=== PATIENT | male | born 1960 | race Caucasian/White ===

== ENCOUNTER 2019-12-04 05:52 | Inpatient (IN) ==
--- NOTE | 2019-12-02 11:01 | XRay Report ---
CLINICAL INFORMATION: Preop COMPARISON: 06/17/2019 TECHNIQUE: PA and Lateral views FINDINGS: The heart size, mediastinum and pulmonary vessels are unremarkable. The lungs are clear. There are no effusions. The bones and soft tissues are within normal limits. IMPRESSION: Normal chest. Interpreted and Authenticated by: Shilo Herrera 12/02/19
[2019-12-02 13:59] LABS: Basophils # (Auto) 0.04 K/mcL (0.00-0.30); Basophils % (Auto) 0.6 % (0.0-2.0); Eosinophils # (Auto) 0.08 K/mcL (0.00-0.70); Eosinophils % (Auto) 1.2 % (0.0-7.0); Granulocytes % (Auto) 61.4 % (38.0-78.0); Hematocrit 44.9 % (40.1-51.0); Hemoglobin 15.6 g/dL (13.7-17.5); Lymphocytes # (Auto) 1.96 K/mcL (1.50-4.80); Lymphocytes % (Auto) 30.3 % (15.5-49.0); Mean Cell Volume 89.3 fL (80.0-100.0); Mean Corpuscular HGB Conc 34.7 g/dL (31.0-36.0); Mean Platelet Volume 9.5 fL (7.4-10.4); Monocytes # (Auto) 0.42 K/mcL (0.10-0.90); Monocytes % (Auto) 6.5 % (1.0-12.0); Platelet Count 286 K/mcL (140-440); RBC 5.03 M/mcL (4.63-6.08); Red Cell Distribution Width 11.9 % (11.5-14.5); WBC 6.5 K/mcL (4.50-11.00)
[2019-12-02 14:01] LABS: ALT/SGPT 44 U/l (0-40); AST/SGOT 30 U/l (0-37); Albumin 4.6 gm/dL (3.2-5.2); Albumin/Globulin Ratio 1.7 (1.0-2.3); Alkaline Phosphatase 63 U/L (39-117); Bilirubin,Total 0.6 mg/dL (0.0-1.0); Blood Urea Nitrogen 13 mg/dl (8-23); Calcium 9.7 mg/dl (8.6-10.4); Carbon Dioxide 21 mmol/L (22-30); Chloride 100 mmol/L (96-108); Globulin 2.7 gm/dL (2.2-3.7); Glomerular Filtration Rate 92; Glucose 107 mg/dL (70-105)
[2019-12-02 14:19] LABS: INR 0.9 (0.9-1.1); Prothrombin Time 12.7 sec (11.9-14.5)
[~2019-12-04 05:52] MED LIST: IPRATROPIUM/ALBUTEROL 3 ML AMPUL.NEB NEB PRN; SCOPOLAMINE 1 PATCH PATCH TOPICAL PRN
[2019-12-04] MEDS ORDERED: VANCOMYCIN 1,500 MG in 0.9 % SODIUM CHLORIDE 500 ML IV SCH (06:00)
[2019-12-04] MEDS ORDERED: PIPERACILLIN SODIUM/TAZOBACTAM 3.375 GM in DEXTROSE 5% IN WATER 50 ML IV SCH (06:00)
[2019-12-04] MEDS ORDERED: PROPOFOL 200 MG/20 ML VIAL IV ONE (09:40)
[2019-12-04] MEDS ORDERED: GLYCOPYRROLATE 0.2 MG/ML VIAL IV ONE (09:40)
[2019-12-04] MEDS ORDERED: ONDANSETRON 4 MG/2 ML VIAL ONE (09:40)
[2019-12-04] MEDS ORDERED: SUGAMMADEX SODIUM 200 MG/2 ML VIAL IV ONE (09:40)
[2019-12-04] MEDS ORDERED: fentaNYL 100 MCG/2 ML VIAL IV ONE (09:40)
[2019-12-04] MEDS ORDERED: ROCURONIUM 10 MG/ML ML IV ONE (09:40)
[2019-12-04] MEDS ORDERED: DEXAMETHASONE 10 MG/ML VIAL ONE (09:40)
[2019-12-04] MEDS ORDERED: ROPIVACAINE HCL/PF 20 ML VIAL IJ ONE (09:40)
[2019-12-04] MEDS ORDERED: KETAMINE 100 MG/ML ML ONE (09:40)
[2019-12-04] MEDS ORDERED: LIDOCAINE HCL/PF 100 MG/5 ML SYRINGE IV ONE (09:40)
[2019-12-04] MEDS ORDERED: ePHEDrine 50 MG/ML AMPUL IV ONE (09:40)
[2019-12-04] MEDS ORDERED: PHENYLEPHRINE 10 MG/ML VIAL ONE (09:40)
[2019-12-04] MEDS ORDERED: HYDROmorphone 0.5 MG/0.5 ML SYRINGE IV PRN (10:31)
[2019-12-04] MEDS ORDERED: MEPERIDINE 25 MG/ML SYRINGE IV PRN (10:31)
[2019-12-04] MEDS ORDERED: FLUMAZENIL 0.1 MG/ML ML IV PRN (10:31)
[2019-12-04] MEDS ORDERED: METOPROLOL TARTRATE 5 MG/5 ML VIAL IV PRN (10:31)
[2019-12-04] MEDS ORDERED: ACETAMINOPHEN 1,000 MG/100 ML BOTTLE IV ONE (10:31)
[2019-12-04] MEDS ORDERED: ePHEDrine 50 MG/ML AMPUL IV PRN (10:31)
[2019-12-04] MEDS ORDERED: diphenhydrAMINE 50 MG/ML VIAL IV PRN (10:31)
[2019-12-04] MEDS ORDERED: IPRATROPIUM/ALBUTEROL 3 ML AMPUL.NEB NEB PRN (10:31)
[2019-12-04] MEDS ORDERED: ONDANSETRON 4 MG/2 ML VIAL IV PRN ×2 (10:31→10:59)
[2019-12-04] MEDS ORDERED: fentaNYL 100 MCG/2 ML VIAL IV PRN (10:31)
[2019-12-04] MEDS ORDERED: PROMETHAZINE 25 MG/ML VIAL IV PRN (10:31)
[2019-12-04] MEDS ORDERED: METHOCARBAMOL 1,000 MG/10 ML VIAL IV PRN (10:31)
[2019-12-04] MEDS ORDERED: ATROPINE SULFATE 0.4 MG/ML VIAL IV PRN (10:31)
[2019-12-04] MEDS ORDERED: NALOXONE HCL 0.4 MG/ML VIAL IV PRN (10:31)
[2019-12-04] MEDS ORDERED: BACITRACIN 50,000 UNIT VIAL IR ONE (10:36)
[2019-12-04] MEDS ORDERED: LACTATED RINGERS 1,000 ML IV SCH (10:45)
--- NOTE | 2019-12-04 10:59 | Brief Operative Note ---
Brief Operative Note Date of procedure: 12/04/19 Pre-op diagnosis: incisional hernia Post-op diagnosis: other (incisional hernia) Procedure: incisional hernia repair with mesh Grafts/Implants: Yes ([id number] skirted oval SURGIMESH) Anesthesia: GETA Findings: 4 SEPARATE SUPRAUMBILICAL MIDLINE FASCIAL DEFECTS WITH INCARCERATED PREPERITONEAL FAT Complications: none Surgeon: Sid Spangler Estimated blood loss (cc): 20 Specimens Removed/Pathology: none sent Condition: stable Disposition: PACU
[2019-12-04] MEDS: KETOROLAC 30 MG/ML VIAL IV PRN (11:19)
[2019-12-04] MEDS: 0.45 % SODIUM CHLORIDE 1,000 ML IV SCH ×2 (12:42→22:48)
[2019-12-04] MEDS: HYDROmorphone 0.5 MG/0.5 ML SYRINGE IV PRN ×3 (14:51→22:48)
[2019-12-04] MEDS ORDERED: NICOTINE 21 MG PATCH TOPICAL ONE (20:17)
[2019-12-05] MEDS: HYDROmorphone 0.5 MG/0.5 ML SYRINGE IV PRN ×2 (02:36→11:50)
[2019-12-05 06:43] LABS: Hematocrit 37.4 % (40.1-51.0); Hemoglobin 12.5 g/dL (13.7-17.5); Mean Cell Volume 91.9 fL (80.0-100.0); Mean Corpuscular HGB Conc 33.4 g/dL (31.0-36.0); Mean Platelet Volume 9.2 fL (7.4-10.4); Platelet Count 239 K/mcL (140-440); RBC 4.07 M/mcL (4.63-6.08); WBC 12.5 K/mcL (4.50-11.00)
[2019-12-05] MEDS: KETOROLAC 30 MG/ML VIAL IV PRN (07:48)
[2019-12-05] MEDS: 0.45 % SODIUM CHLORIDE 1,000 ML IV SCH (07:48)
[2019-12-05 08:47] LABS: Lymphocytes % 17 % (15-49); Monocytes % (Manual) 2 % (1-12); Platelet Estimate NORMAL (NORMAL); RBC Morphology NORMAL (NORMAL); Segmented Neutrophils % 81 % (38-78)
[2019-12-05] MEDS ORDERED: LEVOFLOXACIN 750 MG TABLET PO SCH (09:00)
[2019-12-05] MEDS ORDERED: NICOTINE 21 MG PATCH TOPICAL SCH (10:00)
--- NOTE | 2019-12-05 11:36 | Discharge Summary ---
Discharge Provider Provider Patient information: Note initiated : 12/05/19 at 11:30 am Service Date, if different from initiated Date: [] Patient: Shilo Chopra 59 y/o M admitted on 12/04/19 for Incisional Hernia Repair With Mesh. Chief Complaint: [] Date of admission: 12/04/19 05:52 Discharge date: 12/05/19 Primary care physician: SAKSHI Ramirez Admitting clinician: Sid Spangler Attending physician on admission: Sid Spangler Attending physician on discharge: Sid Spangler Discharging clinician: Sid Spangler COURSE Hospital Course Hospital course: 59-year-old male who is status post incisional hernia repair with placement of a 10 x 15 cm subfascial extraperitoneal SURGIMESH graft. The patient has progressed well and is stable for discharge. Discharge diagnosis: incisional hernia Reason for admission: postoperative incisional hernia Procedures: incisional hernia repair with mesh graft 04 December 2019 Pertinent studies/significant findings: none Complications: none Time Spent with Patient Time attestation: Total time spent providing and/or coordinating discharge services: Physical Examination Vital Signs Vital signs: Temp Pulse Resp BP Pulse Ox 98.5 F 75 14 108/71 91 12/05/19 08:00 12/05/19 08:00 12/05/19 08:00 12/05/19 08:00 12/05/19 08:00 General physical appearance General physical exam: well developed, well nourished, no distress and moderate pain Eyes Eye exam: PERRL and normal ocular movement ENT ENT exam: normal pinna, normal nares, normal mucosa and no hearing loss Head Head exam IM: Present atraumatic, normal inspection and normocephalic Neck Neck exam: no masses, no bruits and trachea midline Cardiovascular Cardiovascular exam IM: Present normal rate and rhythm, RRR, +S1 and +S2; Absent gallop and JVD Respiratory Respiratory exam: normal expansion, normal respiratory effort, clear to percussion and clear to auscultation Abdomen Abdomen: Present soft and tender (moderately tender incision) Integumentary Integumentary: Present no rash, no growths and no abnormal pigmentation Neurologic Neurologic: Present normal coordination and normal sensation Musculoskeletal Musculoskeletal: Present normal gait and normal posture Psychiatric Psychiatric: Present oriented to time, oriented to person, oriented to place, speech is normal and memory intact Discharge Plan Patient/Caregiver Discharge Instructions Activity: increase activity as tolerated Diet: Regular Diet Activity Restrictions/Additional Instructions: no lifting over 25 pounds for your weeks contact the office for dressing changes as needed Prescriptions: New oxycodone-acetaminophen [Endocet] 10-325 mg Tablet 1 tab PO Q4H PRN (Reason: Pain) Qty: 60 RF: 0 levofloxacin [levofloxacin] 750 MG tablet 750 mg PO DAILY Qty: 7 RF: 0 polyethylene glycol 3350 [Miralax] 17 gram powder in packet 17 g PO BID Qty: 100 RF: 0 Continued quinapril 40 mg tablet 40 mg PO QDAY RF: 0 amlodipine 5 mg tablet 5 mg PO QDAY RF: 0 rosuvastatin 40 mg tablet 40 mg PO DAILY RF: 0 Follow Up Plan Follow up with: Sid Spangler MD [Physician] - 12/23/19 (contact office to verify date and time for follow-up appointment) Patient Disposition: Home, Self-Care Prognosis: Good Rehab Potential: Good I certify that the patient requires SNF services: No Overall status at discharge: patient is not back to baseline Discharge Orders: Discharge Order (Routine); Ordered 12/05/19 Ordered By: Sid Spangler Pending Pending Pending: Diet Full Liquid Diet Start MonDec 03 1103 Hydromorphone HCl (Dilaudid) 1 mg IV Q2HP PRN; Protocol PRN Reason: Per Pain Protocol Last Admin: 12/05/19 02:36 Dose: 1 mg Documented by: Admin: 12/04/19 22:48 Dose: 1 mg Documented by: Admin: 12/04/19 18:54 Dose: 1 mg Documented by: Admin: 12/04/19 14:51 Dose: 1 mg Documented by: DONAVON Sodium Chloride (Sodium Chloride 0.45%) 1,000 mls @ 100 mls/hr IV .Q10H CHUN Last Admin: 12/05/19 07:48 Dose: 100 mls/hr Documented by: Infusion: 12/05/19 07:48 Dose: 100 mls/hr Documented by: Admin: 12/04/19 22:48 Dose: 100 mls/hr Documented by: Infusion: 12/04/19 22:42 Dose: 100 mls/hr Documented by: Admin: 12/04/19 12:42 Dose: 100 mls/hr Documented by: DONAVON Ketorolac Tromethamine (Toradol) 30 mg IV Q6HP PRN; Protocol PRN Reason: Per Pain Protocol Stop: 12/06/19 11:01 Last Admin: 12/05/19 07:48 Dose: 30 mg Documented by: Admin: 12/04/19 11:19 Dose: 30 mg Documented by: LIZZ Levofloxacin (Levaquin) 750 mg PO DAILY CHUN; Protocol Last Admin: 12/05/19 07:52 Dose: 750 mg Documented by: DONAVON Shift Summary 12/05/19 03:14 Shift Summary by Gris Saucedo Patient alert and oriented x4. Slept on and off this shift. Medicated with Dilaudid 1mg x3 with moderate effect. Tolerating Full Liquid diet. Patient may have 1 beer with each meal. IVF 1/2 NS@100 mls infusing well on right hand. IV on left forearm kept saline locked. Midline dressing with moderate drainage from gauze dressing. Tegaderm intact. RLQ JALEESA in place, draining sanguinous output. Abdominal binder in place. Ambulated in hallway 370 ft with standby assist. Reported passing flatus, no BM yet. Patient requested Nicotine patch last night. Applied Nicotine patch on left shoulder. Voiding adequately. VSS. Initialized on 12/05/19 03:14 - END OF NOTE
--- NOTE | 2019-12-10 09:12 | Operative Note ---
DATE OF OPERATION: 12/04/2019 PREOPERATIVE DIAGNOSIS: Incisional hernia. POSTOPERATIVE DIAGNOSIS: Incisional hernia. PROCEDURE: Incisional hernia repair with mesh graft. SURGEON: Sid Spangler M.D. FINDINGS: Four separate supraumbilical fascial defects with incarcerated preperitoneal fat. DESCRIPTION OF PROCEDURE: Under general anesthesia, the patient's abdomen was prepped and draped in a sterile field. Timeout procedure was carried out as per protocol. Supraumbilical incision was extended up to the xiphoid. It was carried down to the subcutaneous tissue. There were four separate midline fascial defects from the previous surgery. Each of these contained incarcerated preperitoneal fat. The fascia was opened and the preperitoneal fat was dissected laterally. I was able to stay extraperitoneally. Enough dissection was carried out to place a 10 x 15 skirted oval mesh. This was sutured in place using interrupted 0 Prolene and using the Securestrap stapler. A #7 Jorje drain was placed. This was placed over the mesh. The fascia was then closed over the mesh using #1 Prolene. Subcutaneous tissue was closed with 2-0 Monocryl. Skin was closed with nahomy. Tegaderm dressing was placed. The drain was secured with 2-0 nylon. The patient tolerated the procedure well. He was awakened, transferred to a bed, and taken to the postanesthetic care unit in satisfactory condition. LCS:billie Job ID: [id number] Doc ID: [id number] Sid Spangler M.D.
== END 2019-12-05 13:56 | disposition home or self-care (01) | DRG 355 ==
LOC: MEDSUR 05:52
PROVIDERS: ADMIT Family Medicine Adult Medicine; ATTEND Family Medicine Adult Medicine